=== PATIENT | female | born 1990 | race Caucasian/White ===

== ENCOUNTER 2020-01-10 13:26 | Emergency (ER) | payer BC, SELFPAY ==
[2020-01-10 13:34] VITALS: BP 148/105; PULSE 84; RESP 18; O2SAT 99; BMI 35.4
--- NOTE | 2020-01-10 13:39 | HMH.EDUTC ---
[facility] [place] Dis[place] Clinical Impression: Exposure to COVID-19 virus, Encounter for laboratory testing for COVID-19 virus Disposition: Home, Self-Care Condition on Discharge: Good Instructions: Preventing the Spread of Coronavirus Discharge Instructions Additional Instructions: *Monitor Temp, Over the counter Motrin or Tylenol as directed/as needed Tylenol every 4 hours and Motrin every 6 hours (as long as your family doctor has told you that you can take it) for fever or pain. and straight to ER if unable to lower temp less than 101.0 after medication given *Warm salt water gargles may help to soothe the throat if your throat becomes irritated *Throat Lozenges *Warm fluids like tea with honey may help to soothe the throat *Sleep elevated *Humidifier/Vaporizer Follow up IMMEDIATELY for new or worsening symptoms or no Noticeable improvement over the next 48-72 hours. 911 for difficulty breathing or swallowing You was tested for today for COVID19 your test result should be back later this evening, you may call back later this evening to see if your test results are back and the result You was given a handout with instructions for Self Quarantine and Self isolation for while you wait on test results and what to do if they are positive Referrals: Darell Nichols MD [Primary Care Provider] - As needed Forms: Work/School Release Time of Disposition: 13:43 Medical Decision Making - Ancelmo Inquiry Pt receiving controlled substance: No Ancelmo was queried for this patient: No Vital Signs: 01/10/20 13:34 Pulse Rate [Radial] 84 Respiratory Rate 18 Blood Pressure [Right Arm] 148/105 H Blood Pressure Mean [Right Arm] 119 Blood Pressure Source [Right Arm] Automatic Cuff Blood Pressure Position [Right Arm] Sitting 02 Sat by Pulse Oximetry 99 Oxygen Delivery Method Room Air Orders (Tests/Meds): ORDERS Category Date Time Status Covid-19 Nasal PCR ([facility]) Routine Lab 01/10/20 13:34 Ordered [facility] [place] HPI - General Stated complaint: covid exposure Time Seen by Provider: 01/10/20 13:39 Mode of Arrival: Ambulatory Source of Information: Patient Limitations: No Limitations Description of Symptoms (Recalled from Triage Doc. by RN): COVID EXPOSURE. NO SYMPTOMS HEENT Symptoms (Recalled from RN notes): No Resp Symptoms (Recalled from RN notes): No Skin Symptoms (Recalled from RN notes): No MS Symptoms (Recalled from RN notes): No Functional Status (Recalled from RN notes): WNL - History of Present Illness Provider Complaint: Patient states that she was recently exposed to father who tested positive for COVID States that she isnt having any symptoms but her work is wanted her to get tested to make sure so she come in today to get tested - Related Data Previous Rx's Medication Instructions Recorded pkfzmoykpjikfth-octxmslbyuegzai-BT 5 ml PO Q4-6H PRN #240 ml 01/04/18 2 mg-30 mg-10 mg/5 mL oral syrup Hydrocodone/Acetaminophen [[place] 1 tab PO TID PRN 3 Days #12 tab 11/03/18 7.5-325 Tablet] Allergies Allergy/AdvReac Type Severity Reaction Status Date / Time Penicillins Allergy Mild Verified 01/04/18 13:30 - Worker's Comp Is this a Worker's Comp case?: No [facility] History - Hepatitis A Screen Drug use history?: No High risk sexual behaviors?: No History of sexually transmitted infection?: No Currently employed?: No Childcare worker?: No Do you have indoor plumbing?: Yes Do you have electricity?: Yes Attestation statement:: This patient has been screened for Hepatitis A risk factors. I have reviewed the patient's past medical history: Yes Other Surgeries: Yes: No Previous Surgery - Social History Smoking Status: Never smoker Alcohol Intake: never Alcohol Intake Frequency:: holidays/special occasions only Occupational Status: employed Housing: house Household Members: significant other Family Hx:: Cancer, Hypertension ROS Obtained: Yes All systems reviewed & no additional complaints, Yes System
[2020-01-10 13:49] VITALS: BP 148/105; PULSE 84; RESP 118; TEMP 36.7; O2SAT 99
== END 2020-01-10 13:50 | disposition home or self-care (01) ==
PROVIDERS: Emergency Provider Nurse Practitioner; PCP Internal Medicine Adolescent Medicine
DX: U07.1 COVID-19 (principal)
CPT/HCPCS: 99201; U0003

== ENCOUNTER 2020-03-21 11:26 | Emergency (ER) | payer BC, SELFPAY ==
[2020-03-21 12:25] VITALS: BP 113/76; PULSE 96; RESP 19; TEMP 37.1; O2SAT 99; BMI 35.0
--- NOTE | 2020-03-21 12:45 | HMH.EDUTC ---
[facility] [place] Clinical Impression: Exposure to COVID-19 virus Disposition: Home, Self-Care Condition on Discharge: Good Instructions: DI for COVID-19 (Suspected or Confirmed ), Coronavirus Disease 2019, Preventing the Spread of Coronavirus Discharge Instructions Additional Instructions: *Monitor Temp, Over the counter Motrin or Tylenol as directed/as needed Tylenol every 4 hours and Motrin every 6 hours (as long as your family doctor has told you that you can take it) for fever or pain. and straight to ER if unable to lower temp less than 101.0 after medication given Follow up IMMEDIATELY for new or worsening symptoms or no Noticeable improvement over the next 48-72 hours. 911 for difficulty breathing or swallowing You were tested for today for COVID19 your test result should be back in the next 24-48 hours, you may call to the [facility] to see if your test results are back in the next 48 hours [phone] [facility] hours are 9am-9pm You was given a handout with instructions for Self Quarantine and Self isolation for while you wait on test results and what to do if they are positive If you are positive the Health Dept will be contacting you also Referrals: Darell Nichols MD [Primary Care Provider] - As needed Time of Disposition: 12:47 Medical Decision Making - Ancelmo Inquiry Pt receiving controlled substance: No Ancelmo was queried for this patient: No Vital Signs: 03/21/20 12:25 Temperature 98.8 F Temperature Source Oral Pulse Rate [Right Brachial] 96 H Respiratory Rate 19 Blood Pressure [Right Arm] 113/76 Blood Pressure Mean [Right Arm] 88 Blood Pressure Source [Right Arm] Automatic Cuff Blood Pressure Position [Right Arm] Sitting 02 Sat by Pulse Oximetry 99 Oxygen Delivery Method Room Air Orders (Tests/Meds): ORDERS Category Date Time Status Covid-19 Nasal PCR ([facility]) Routine Lab 03/21/20 12:39 [place] [facility] [place] - General Stated complaint: covid exposure test Time Seen by Provider: 03/21/20 12:46 Mode of Arrival: Ambulatory Source of Information: Patient Limitations: No Limitations Description of Symptoms (Recalled from Triage Doc. by RN): PATIENT NEEDING COVID TEST FOR WORK D/T EXPOSURE HEENT Symptoms (Recalled from RN notes): No Resp Symptoms (Recalled from RN notes): No Skin Symptoms (Recalled from RN notes): No MS Symptoms (Recalled from RN notes): No Functional Status (Recalled from RN notes): WNL - History of Present Illness Provider Complaint: Patient state that work called and told her that one of her coworkers tested positive for COVID and had her come in to get tested States that she isnt having any symptoms but needed to get tested for work - Related Data Previous Rx's Medication Instructions Recorded tldhbepsxwjllfy-lqjutflyyetgqqr-LD 5 ml PO Q4-6H PRN #240 ml 01/04/18 2 mg-30 mg-10 mg/5 mL oral syrup Hydrocodone/Acetaminophen [[place] 1 tab PO TID PRN 3 Days #12 tab 11/03/18 7.5-325 Tablet] Allergies Allergy/AdvReac Type Severity Reaction Status Date / Time Penicillins Allergy Mild Verified 01/04/18 13:30 - Worker's Comp Is this a Worker's Comp case?: No [facility] History - Hepatitis A Screen Drug use history?: No High risk sexual behaviors?: No History of sexually transmitted infection?: No Currently employed?: No Childcare worker?: No Do you have indoor plumbing?: Yes Do you have electricity?: Yes Attestation statement:: This patient has been screened for Hepatitis A risk factors. I have reviewed the patient's past medical history: Yes Other Surgeries: Yes: No Previous Surgery - Social History Smoking Status: Never smoker Alcohol Intake: never Alcohol Intake Frequency:: holidays/special occasions only Occupational Status: other Housing: house Household Members: significant other Family Hx:: Cancer, Hypertension ROS Obtained: Yes All systems reviewed & no additional complaints, Yes Systems reviewed as appropriate & no additional complaints - Co
[2020-03-21 12:48] VITALS: BP 113/76; PULSE 96; RESP 19; TEMP 37.1; O2SAT 99
--- NOTE | 2020-03-21 20:10 | PC.NURSE ---
PATIENT NOTIFIED OF POSITIVE COVID TEST AT THIS TIME
== END 2020-03-21 12:50 | disposition home or self-care (01) ==
LOC: ER 11:30 → UTC 11:31
PROVIDERS: Emergency Provider Nurse Practitioner; PCP Internal Medicine Adolescent Medicine
DX: U07.1 COVID-19 (principal); Z88.0 Allergy status to penicillin
CPT/HCPCS: 99202; G0463; U0003

== ENCOUNTER 2022-08-26 06:20 | Emergency (ER) | payer OTHER, SELFPAY ==
[2022-08-26] VITALS (11 sets, daily range): BP systolic 120–141; BP diastolic 74–91; PULSE 62–84; RESP 15–20; TEMP 36.8–36.9; O2SAT 97–100; BMI 34.5
--- NOTE | 2022-08-26 06:27 | CT_ITS ---
PROCEDURE INFORMATION: Exam: CT Abdomen And Pelvis With Contrast Exam date and time: 08/26/2022 7:01 AM Age: 31 years old Clinical indication: Abdominal pain; Acute; Patient HX: Csection only prior abd surgery; Additional info: Ruq abd pain TECHNIQUE: Imaging protocol: Computed tomography of the abdomen and pelvis with contrast. Radiation optimization: All CT scans at this facility use at least one of these dose optimization techniques: automated exposure control; mA and/or kV adjustment per patient size (includes targeted exams where dose is matched to clinical indication); or iterative reconstruction. Contrast material: ISOVUE; Contrast volume: 75 ml; Contrast route: IV; REPORTING DATA: Count of CT and Cardiac NM exams in prior 12 months: This patient has received 0 known CTs and 0 known cardiac nuclear medicine studies in the 12 months prior to the current study. COMPARISON: CT ABDOMEN PELVIS W CON 11/03/2018 5:13 PM FINDINGS: Lungs: Interstitial prominence and chronic granulomatous disease. Liver: No focal hepatic mass. Gallbladder and bile ducts: Cholelithiasis, pericholecystic fluid, and biliary ductal dilatation. Pancreas: Abnormal pancreas with inhomogeneous attenuation and prominent infiltration of peripancreatic fat and fluid, consistent with pancreatitis. Spleen: Enlarged spleen measuring 13.7 cm in length. Adrenal glands: Unremarkable adrenals. Kidneys and ureters: Normal renal morphology. No hydronephrosis. Stomach and bowel: Mild gastric and duodenal wall thickening. Appendix: Nonvisualization of the appendix. Intraperitoneal space: Intraperitoneal and retroperitoneal fluid. Vasculature: Normal caliber of the abdominal aorta. Patency of the splenic and portal veins. Lymph nodes: Subcentimeter lymph nodes. Urinary bladder: Nondistended bladder limiting evaluation. Reproductive: Left ovarian cysts, the largest measuring 2.3 cm. Bones/joints: Mild degenerative change. Soft tissues: Fat containing umbilical hernia. IMPRESSION: 1. Cholelithiasis, pericholecystic fluid, and biliary ductal dilatation. 2. Abnormal pancreas with inhomogeneous attenuation and prominent infiltration of peripancreatic fat and fluid, consistent with pancreatitis. 3. Additional findings as described above.
[2022-08-26 06:35] LABS: Basophils % 0.2 % (0.1-2.0); Eosinophils # 0.1 K/mm3 (0.0-0.4); Eosinophils % 0.9 % (0.1-12.0); Hematocrit 43.7 % (37.0-47.0); Lymphocytes # 1.3 K/mm3 (0.7-4.5); Lymphocytes % 12.1 % (10-50); Mean Corpuscular HGB Conc 32.1 g/dL (31.8-35.4); Mean Corpuscular Hemoglobin 28.9 pg (27.0-31.2); Mean Platelet Volume 11.2 fl (7.4-10.4); Monocytes # 0.4 K/mm3 (0.1-1.0); Neutrophils # 8.8 K/mm3 (1.8-7.8); Neutrophils % 82.8 % (37.0-80.0); Platelet Count 214 K/mm3 (142-424); Red Blood Count 4.85 M/mm3 (4.20-5.40); Red Cell Distribution Width 12.9 % (11.5-17.5); White Blood Count 10.6 K/mm3 (4.8-10.8)
[2022-08-26 06:37] LABS: Chloride 101 mmol/L (98-107); Potassium 3.3 mmoL/L (3.5-5.1); Sodium 138 mmol/L (136-145)
[2022-08-26 06:40] LABS: Alanine Aminotransferase 401 U/L (12-78); Albumin Level 4.3 g/dl (3.5-5.0); Albumin/Globulin Ratio 1.6 (1.1-1.8); Alkaline Phosphatase 212 U/L (38-126); Anion Gap 16.3 mEq/L (5-15); Aspartate Amino Transferase 226 U/L (14-36); Blood Urea Nitrogen 9 mg/dl (7-17); Calcium 8.5 mg/dl (8.4-10.2); Carbon Dioxide 24 mmol/L (22.0-30.0); Creatinine Clearance Estimated 186 mL/min (50-200); Estimated Glomerular Filt Rate 115 ml/min (>60); GFR (African American) 139 ML/MIN (>60); Globulin 2.7 g/dL (1.3-3.2); Glucose 152 mg/dl (74-100)
[2022-08-26 06:47] LABS: HCG Qualitative, Serum Negative (Negative)
[2022-08-26 06:52] LABS: Appearance,Urine SL CLOUDY (Clear); Blood, Urine Negative (Negative); Color,Urine ORANGE (Yellow); Glucose,Urine (UA) Negative (Negative); Ketones,Urine 3+ (Negative); Leukocyte Esterase,Urine Negative (Negative); Microscopic, Urine URINE MICROSCOPIC (MICROSCOPIC); Nitrate,Urine POSITIVE (Negative); PH,Urine 5.5 (5.0-8.5); Protein,Urine 2+ (Negative); Specific Gravity, Urine >= 1.030 (1.005-1.030)
[2022-08-26 06:54] LABS: Bilirubin,Urine 3+ (Negative)
--- NOTE | 2022-08-26 06:58 | PC.NURSE ---
Pt gone to RAD via wheelchair
--- NOTE | 2022-08-26 07:00 | PC.NURSE ---
Assumed pt. care
[2022-08-26 07:07] LABS: Amylase 3535 U/L (30-110)
[2022-08-26 07:10] LABS: Bacteria,Urine 1+ /lpf; Mucus,Urine 2+ /lpf
--- NOTE | 2022-08-26 07:18 | PC.NURSE ---
Rounded on patient; reassessed patient. Patient requesting pain medication. MD notified [facility] for 4mg Morphine IV.
[2022-08-26 07:30] LABS: Lipase 31668 U/L (23-300)
--- NOTE | 2022-08-26 07:42 | PC.NURSE ---
Radiology called for disc and to power share images to [facility]
--- NOTE | 2022-08-26 07:43 | HMH.EDABDPAI ---
Discharge Plan Disposition Patient Disposition: Xfer Short-Term Hosp Condition: Fair Prescriptions Prescriptions: No Action No Known Home Medications Referrals Follow up/Referrals: Provider,Referral, [Primary Care Provider] - See instructions Clinical Impressions Clinical Impression: Pancreatitis due to biliary obstruction, Pancreatitis, Common bile duct dilatation Discharge ED Provider: Radha GARNER)Torres Abdominal Pain HPI <Torres Garcia (ED)MD - Last Filed: 08/26/22 07:59> General Chief Complaint: Abdominal Pain Stated Complaint: abd Time Seen by Provider: 08/26/22 07:00 Mode of Arrival: EMS Source of Information: Patient Limitations: No Limitations Description of Symptoms (Recalled from ER Triage Doc. by RN): 31 yo female presents with RUQ abd pain that woke her up from sleep. PMH: dx of sludge in her gallbladder. States has been nauseated, no vomiting yet. afebrile. Patient states she was has eaten very little over the past couple of days because every time I eat, it hurts . Denies dysuria. Denies bowel related issues. History of Present Illness HPI narrative: progressive upper abd pain over the last 3 days - worse this am - has nausea - has pain assoc with meals - no chronic dis MD complaint: abdominal pain Onset (ago): day(s) Consistency: constant Location: RUQ and epigastric Severity: moderate Associated symptoms: denies other symptoms Related Data Home Medications Medication Instructions Recorded Confirmed No Known Home Medications 08/26/22 08/26/22 Allergies Allergy/AdvReac Type Severity Reaction Status Date / Time Penicillins Allergy Mild Verified 01/04/18 13:30 PFSH <Torres Garcia (ELSY)MD - Last Filed: 08/26/22 07:59> PFS Disclaimer: The information contained in this section may have been updated after the patient was seen, as this information can be updated by other users. Social History Smoking Status: Never smoker second hand exposure: No alcohol intake: never current occupational status: other Travel in the last 8 weeks: None household members: significant other housing: house <Torres Garcia (ELSY)MD - Last Filed: 08/26/22 07:59> ROS Obtained: Yes All systems reviewed & no additional complaints except as documented Physical Exam <Torres Garcia (ED)MD - Last Filed: 08/26/22 07:59> General General appearance: alert Head Head exam: normocephalic Eye Eye exam: Present PERRL and EOMI ENT ENT exam: Present mucous membranes moist Neck Neck exam: Present trachea midline Respiratory Respiratory exam: Present normal lung sounds bilaterally; Absent respiratory distress Cardiovascular Cardiovascular exam: Present regular rate Abdominal Exam Abdominal exam: Present soft, tenderness and Frazier's sign; Absent guarding, rebound or rigidity Abdominal tenderness: Present RUQ, epigastrium and moderate Extremities Exam Extremities exam: Present full ROM; Absent calf tenderness Neurological Exam Neurological exam: Present alert, oriented X3 and CN II-XII intact; Absent motor sensory deficit Psychiatric Psychiatric exam: Present normal affect Skin Skin exam: Absent rash Medical Decision Making <Torres GARNER)MD - Last Filed: 08/26/22 07:59> Medical Records Medical records reviewed: Yes I reviewed the patient's medical records. Ancelmo Inquiry Pt receiving controlled substance: No Vital Signs: 08/26/22 06:20 08/26/22 06:32 08/26/22 07:30 Temperature 98.4 F Temperature Source Oral Pulse Rate 62 78 Pulse Rate [Right Brachial] 68 Respiratory Rate 15 18 16 Blood Pressure 141/91 H 122/74 Blood Pressure [Right Arm] 140/89 Blood Pressure Mean 90 Blood Pressure Mean [Right Arm] 106 Blood Pressure Source [Right Arm] Automatic Cuff Blood Pressure Position [Right Arm] Sitting 02 Sat by Pulse Oximetry 100 100 100 Oxygen Delivery Method Room Air 08/26/22 08:01 08/26/22 08:30 08/26/22 09:00 [place]
--- NOTE | 2022-08-26 08:00 | PC.NURSE ---
Rounded on patient and reassessed pain
--- NOTE | 2022-08-26 08:51 | PC.NURSE ---
Called radiology to have them call [facility] for CT results
--- NOTE | 2022-08-26 10:02 | PC.NURSE ---
placed call to [facility] for transfer
--- NOTE | 2022-08-26 10:07 | PC.NURSE ---
Dr Walsh speaking with Dr Corona at [facility]
--- NOTE | 2022-08-26 10:09 | PC.NURSE ---
[facility] accepting ER to ER Accepting
--- NOTE | 2022-08-26 10:09 | PC.NURSE ---
Rounded on patient and reassessed pain. Patient reports pain still hasn't gotten better. MD notified no new orders at this time
--- NOTE | 2022-08-26 10:16 | PC.NURSE ---
advised ems of pt transfer, and that she would be ready in about 10 minutes
--- NOTE | 2022-08-26 10:38 | PC.NURSE ---
advised EMS pt was ready for transfer
--- NOTE | 2022-08-26 11:20 | PC.NURSE ---
Assessed patient's pain; pain report to MD 7 on 0-10 scale. New orders received
== END 2022-08-26 11:20 | disposition short-term general hospital (02) ==
PROVIDERS: Emergency Provider Emergency Medicine
DX: K85.10 Biliary acute pancreatitis without necrosis or infection (principal); K83.8 Other specified diseases of biliary tract; R10.11 Right upper quadrant pain; R10.13 Epigastric pain
CPT/HCPCS: 74177; 80053; 81001; 82150; 83690; 84703; 85025; 96361; 96374; 96375; 96376; 99285; J0131; J2405; Q9967